=== PATIENT | female | born 1955 | race Two or more races ===

== ENCOUNTER 2024-04-16 06:13 | Inpatient (IN) | payer MEDICARE, OTHER ==
[~2024-04-16] VITALS: Ht 162.6 cm; Wt 98.9 kg
[2024-04-16] VITALS (9 sets, daily range): BP systolic 102–157; BP diastolic 53–95; PULSE 60–87; RESP 15–20; TEMP 97.8–98.9; O2SAT 95–99
[~2024-04-16 06:13] MED LIST: CRESTOR40 MG PO; CYMBALTA30 MG PO; METFORMIN HCL500 MG PO
[2024-04-16] MEDS: LEVOFLOXACIN 500MG/D5W 100ML 100 ML IV ONE (06:38)
[2024-04-16] MEDS: LACTATED RINGER'S 1,000 ML ONE (06:38)
[2024-04-16 07:07] LABS: BASOPHILS # (AUTO) 0.1 (0.0-0.1); BASOPHILS % 1.1 % (0.0-1.0); EOSINOPHILS # (AUTO) 0.4 (0.0-0.4); EOSINOPHILS % 5.6 % (0.0-6.0); HEMATOCRIT 41.7 % (34.2-44.1); HEMOGLOBIN 13.8 g/dL (12.0-16.0); LYMPHOCYTES # (AUTO) 2.8 (1.0-3.2); LYMPHOCYTES % 38.4 % (18.0-39.1); MEAN CORPUSCULAR HEMOGLOBIN 27.2 pg (28-32); MEAN CORPUSCULAR HGB CONC 33.1 g/dL (31-35); MEAN CORPUSCULAR VOLUME 82.2 fL (81-99); MONOCYTES # (AUTO) 0.7 (0.2-0.8); MONOCYTES % 8.9 % (4.4-11.3); NEUTROPHILS # (AUTO) 3.4 (2.1-6.9); NEUTROPHILS % 45.9 % (38.7-80.0); PLATELET COUNT 213 x10e3/uL (140-360); RED BLOOD COUNT 5.07 x10e6/uL (3.6-5.1); RED CELL DISTRIBUTION WIDTH 13.6 % (11.7-14.4)
[2024-04-16 07:26] LABS: ANION GAP 16.1 mmol/L (8-16); CALCIUM 9.1 mg/dL (8.4-10.2); CREATININE, SERUM 0.89 mg/dL (0.57-1.11); POTASSIUM 4.1 mmol/L (3.5-5.1)
[2024-04-16] MEDS ORDERED: BUPIVACAINE 0.25% 30ML SDV ONE ×2 (07:51→13:43)
[2024-04-16] MEDS ORDERED: HYDROCODONE/APAP 7.5MG-325MG 1 EA TAB PO PRN (08:30)
[2024-04-16] MEDS: SCOPOLAMINE 1 MG PATCH TOP SCH (09:50)
[2024-04-16] MEDS: METOCLOPRAMIDE HCL 10 MG/2ML VIAL ONE (09:55)
[2024-04-16] MEDS: ONDANSETRON HCL INJ 2MG/ML 2ML 2 MG/ML VIAL IV PRN (09:55)
[2024-04-16] MEDS: FENTANYL CITRATE/PF 100MCG/2 ML INJ ONE (09:55)
[2024-04-16] MEDS ORDERED: DIPHENHYDRAMINE HCL 25 MG CAP PO PRN (10:45)
[2024-04-16] MEDS: Morphine 2mg Syringe 2 MG/ML SYR IV PRN (11:06)
[2024-04-16] MEDS: LACTATED RINGER'S 1,000 ML IV SCH (11:08)
[2024-04-16] MEDS ORDERED: PROPOFOL IV EMULSION 10 MG/ML 20 ML VIAL ONE (12:55)
[2024-04-16] MEDS ORDERED: ROCURONIUM BROMIDE 10 MG/ML 5ML VIAL IV ONE (12:55)
[2024-04-16] MEDS ORDERED: LIDOCAINE HCL 2% LOCAL INJ 5 ML SDV VIAL INJ ONE (12:55)
[2024-04-16] MEDS ORDERED: ONDANSETRON HCL INJ 2MG/ML 2ML 2 MG/ML VIAL ONE (12:55)
[2024-04-16] MEDS ORDERED: SEVOFLURANE INHAL SOLN 250 ML PEN BTL ONE (12:55)
[2024-04-16] MEDS ORDERED: METOCLOPRAMIDE HCL 10 MG/2ML VIAL ONE (12:55)
[2024-04-16] MEDS ORDERED: SUCCINYLCHOLINE CHLORIDE 20 MG/ML 10ML VIAL ONE (12:55)
[2024-04-16] MEDS ORDERED: FAMOTIDINE 20 MG/2 ML VIAL IV ONE (12:55)
[2024-04-16] MEDS ORDERED: SUGAMMADEX SODIUM 200 MG/2 ML VIAL IV ONE (12:55)
[2024-04-16] MEDS ORDERED: ACETAMINOPHEN 1000 MG/100 ML IV ONE (12:55)
[2024-04-16] MEDS ORDERED: EPINEPHRINE HCL 1:1000 1ML 1 MG/ML AMP ONE (13:43)
[2024-04-16] MEDS ORDERED: FENTANYL CITRATE/PF 100MCG/2 ML INJ ONE (17:46)
[2024-04-16] MEDS: ENOXAPARIN SOD INJ 40 MG/0.4 ML SYR SC SCH (18:06)
[2024-04-17] VITALS: BP 147/95; PULSE 94; RESP 20; TEMP 99.6; O2SAT 97
[2024-04-17 04:00] VITALS: BP 162/96; PULSE 89; RESP 20; TEMP 98.7; O2SAT 97
[2024-04-17 05:28] LABS: BASOPHILS % 0.2 % (0.0-1.0); EOSINOPHILS % 0.1 % (0.0-6.0); HEMATOCRIT 38.8 % (34.2-44.1); LYMPHOCYTES # (AUTO) 2.1 (1.0-3.2); LYMPHOCYTES % 15.1 % (18.0-39.1); MEAN CORPUSCULAR HEMOGLOBIN 27.8 pg (28-32); MEAN CORPUSCULAR HGB CONC 33.5 g/dL (31-35); MEAN CORPUSCULAR VOLUME 82.9 fL (81-99); MONOCYTES # (AUTO) 1.1 (0.2-0.8); MONOCYTES % 7.8 % (4.4-11.3); NEUTROPHILS # (AUTO) 10.7 (2.1-6.9); NEUTROPHILS % 76.4 % (38.7-80.0); PLATELET COUNT 201 x10e3/uL (140-360); RED BLOOD COUNT 4.68 x10e6/uL (3.6-5.1); RED CELL DISTRIBUTION WIDTH 13.4 % (11.7-14.4); WHITE BLOOD COUNT 14.06 x10e3/uL (4.8-10.8)
[2024-04-17 05:55] LABS: ALBUMIN 3.3 g/dL (3.5-5.0); ALBUMIN/GLOBULIN RATIO 0.9 (0.8-2.0); ANION GAP 15.8 mmol/L (8-16); BILIRUBIN,TOTAL 0.8 mg/dL (0.2-1.2); CALCIUM 8.6 mg/dL (8.4-10.2); CREATININE, SERUM 0.85 mg/dL (0.57-1.11); MAGNESIUM 1.6 MG/DL (1.3-2.1); PHOSPHORUS 3.2 MG/DL (2.3-4.7); POTASSIUM 3.8 mmol/L (3.5-5.1); TOTAL PROTEIN 6.9 g/dL (6.5-8.1)
[2024-04-17 07:47] VITALS: PULSE 89; RESP 18; O2SAT 97
[2024-04-17 08:00] VITALS: BP 162/96; PULSE 89; RESP 18; TEMP 98.7; O2SAT 97
[2024-04-17 08:17] VITALS: BP 138/83; PULSE 85; RESP 20; TEMP 98.8; O2SAT 99
== END 2024-04-17 09:05 | disposition home or self-care (01) | DRG 621 ==
LOC: OR 06:13 → PACU V 08:20 → OBSVTOIN 08:23 → MED/SURG2 10:33
PROVIDERS: ADMIT Internal Medicine; ATTEND Internal Medicine
PROC: 0WQF4ZZ Repair Abdominal Wall, Percutaneous Endoscopic Approach (ICD-10-PCS; 2024-04-16)
PROC: 0DB64Z3 Excision of Stomach, Percutaneous Endoscopic Approach, Vertical (ICD-10-PCS; principal; 2024-04-16 08:03)
DX: E66.01 Morbid (severe) obesity due to excess calories (principal); Z68.37 Body mass index [BMI] 37.0-37.9, adult; E78.5 Hyperlipidemia, unspecified; G47.33 Obstructive sleep apnea (adult) (pediatric); R73.03 Prediabetes; K44.9 Diaphragmatic hernia without obstruction or gangrene; M79.81 Nontraumatic hematoma of soft tissue; F32.A Depression, unspecified; Z79.84 Long term (current) use of oral hypoglycemic drugs
CPT/HCPCS: 36415; 71046; 80048; 80053; 82948; 83735; 84100; 85025; 94799; J0171; J0330; J1650; J1956; J2001; J2270; J2405; J2765